=== PATIENT | male | born 1955 | race Caucasian/White ===

== ENCOUNTER 2019-03-12 21:31 | Emergency (ER) | payer OTHER ==
[~2019-03-12] VITALS: Ht 180.3 cm; Wt 96.2 kg
[2019-03-12] MEDS ORDERED: PACERONE 200 M200 M1 PO (21:54)
[2019-03-12] MEDS ORDERED: ELIQUIS5 MG PO (21:54)
[2019-03-12] MEDS ORDERED: ASPIR 8181 MG PO (21:54)
[2019-03-12] MEDS ORDERED: LASIX 40 MG TAB40 M2 PO (21:55)
[2019-03-12] MEDS ORDERED: CARVEDILOL12.5 MG PO (21:55)
[2019-03-12] MEDS ORDERED: FLORASTOR250 MG PO (21:55)
[2019-03-12] MEDS ORDERED: ATORVASTATIN CA40 MG PO (21:55)
[2019-03-12] MEDS ORDERED: SPIRONOLACTONE25 M1 PO (21:56)
[2019-03-12] MEDS ORDERED: GENTAMICIN80 MG/50 M IV (21:57)
[2019-03-12] MEDS ORDERED: UNICOMPLEX M TA1 TA1 PO (21:57)
[2019-03-13 00:43] VITALS: BP 107/66
[2019-03-14] MEDS ORDERED: SPIRONOLACTONE25 M1 PO (00:50)
[2019-03-14] MEDS ORDERED: TYGACIL50 MG IV (00:53)
[2019-03-14] MEDS ORDERED: CENTRUM SILVER1 EAC2 PO (01:10)
[2019-03-14] MEDS ORDERED: PROSTAT PO (01:10)
== END 2019-03-13 01:44 | disposition home or self-care (01) ==
LOC: ER 21:31
DX: Z04.3 Encounter for examination and observation following other accident (principal); I48.91 Unspecified atrial fibrillation; I11.0 Hypertensive heart disease with heart failure; I50.9 Heart failure, unspecified; J96.00 Acute respiratory failure, unspecified whether with hypoxia or hypercapnia; J44.9 Chronic obstructive pulmonary disease, unspecified; F17.200 Nicotine dependence, unspecified, uncomplicated; Z79.01 Long term (current) use of anticoagulants; W06.XXXA Fall from bed, initial encounter; Y93.89 Activity, other specified; Y92.89 Other specified places as the place of occurrence of the external cause; Y99.8 Other external cause status

== ENCOUNTER 2019-03-14 00:18 | Inpatient (IN) | payer OTHER ==
[2019-03-14] VITALS (33 sets, daily range): BP systolic 34–123; BP diastolic 14–74
[~2019-03-14] VITALS: Ht 180.3 cm; Wt 93.4 kg
--- NOTE | ~2019-03-14 | HC ---
Formerly [facility] [place] [address] [place] [address] CONSULTATION Name: UREIL HAWKINS Room #: 238-P ADM IN M.R.#: [id number] Admission: 03/14/19 ������������������ Attend Phys: Kulwant Trinidad MD Discharge: ������������������ Date of : 55 Report #: [id number] THIS REPORT FOR: //name// CC: Alexander Trinidad DATE OF SERVICE: 03/14/2019 REASON FOR CONSULTATION: Acute kidney injury and hyperkalemia. REASON FOR PRESENTATION: Abnormal labs. HISTORY OF PRESENT ILLNESS: This is a 63-year-old with past medical history of cardiomyopathy, hypertension, AFib. He is known to have lower extremity wound. He has been residing at his nursing facility after about few weeks' duration of hospitalization at [facility]. He had few toes amputation due to infection due to poor circulations as he stated. He has been maintained on Tygacil and gentamicin. Creatinine has been in the normal range. In fact, he was 1.0 back on 01/28/2019. This has started to go up to 1.9 as of 02/07/2019. No labs had been done ever since and the patient's BUN and creatinine was checked on 03/13/2019 and this revealed a BUN of 155 and a creatinine of 10.8. The patient denies any symptoms at this point. However, he did have a fall a few days ago. He has repeated falls ever since. No reported chest pain or shortness of breath. No nausea or vomiting. Phillips catheter was placed and the patient had about 200 mL of urine. When he presented yesterday, his potassium was on the high side at 6.5. Consult was placed for us to manage his acute kidney injury. PAST MEDICAL HISTORY: 1. A-Fib. 2. Cardiomyopathy. 3. Hypertension. 4. Hyperlipidemia. 5. COPD. 6. Status post left toes amputation. MEDICATIONS: 1. Amiodarone. 2. Aspirin. 3. Atorvastatin. 4. Carvedilol. 5. Furosemide. 6. Aldactone. 7. Tygacil. 8. Gentamicin. [facility] [address] [place] [address] CONSULTATION Name: URIEL HAWKINS Room #: 238-P [facility] IN [facility].#: [id number] Admission: 03/14/19 ������������������ Attend Phys: Kulwant Trinidad MD Discharge: ������������������ Date of : 55 Report #: [id number] SOCIAL HISTORY: Resides in a nursing facility. No drug or alcohol abuse. ALLERGIES: None. REVIEW OF SYSTEMS: GENERAL: No fever or chills. CARDIOVASCULAR: No chest pain or palpitation. PULMONARY: No cough or hemoptysis. GASTROINTESTINAL: No nausea or vomiting. GENITOURINARY: No frequency, no urgency. NEUROLOGICAL: As per the history of present illness. FAMILY HISTORY: Significant for hypertension. PHYSICAL EXAMINATION: GENERAL: He is alert, oriented, in no apparent distress. VITAL SIGNS: Blood pressure 73/44. He received 3 liters of normal saline. HEAD AND NECK: No jugular venous distention. CHEST: No crackles. CARDIOVASCULAR: No rub. ABDOMEN: Soft, nontender. LOWER EXTREMITIES: Cast is applied over the left lower extremity. No edema on the right lower extremity. LABORATORY VALUES: Reviewed. Sodium is 132, potassium is down to 5.5, BUN is 161, creatinine is 10.8, carbon dioxide 16. ASSESSMENT, IMPRESSION AND PLAN: 1. Acute kidney injury due to gentamicin. 2. Hyperkalemia. 2. Cardiomyopathy. 3. His acute kidney injury is related to the gentamicin. We will initiate the acute kidney injury workup. 4. He is hypotensive and will need aggressive fluid resuscitation. 5. Monitor urine output. 6. Potassium had improved. 7. Low threshold for dialysis. 8. Discontinue all medications that might contribute to his hyperkalemia including Aldactone, and other nephrotoxic agents. 9. Initiate pressors as needed. 10. We will continue to follow along. ��������������������������������������������� ���������������������������������������� By: ��������������������������������������������� 0643 0109 Alexander Paulino MD /nt
[~2019-03-14 00:18] MED LIST: ASPIR 8181 MG PO; ATORVASTATIN CA40 MG PO; CARVEDILOL12.5 MG PO; ELIQUIS5 MG PO; FLORASTOR250 MG PO; GENTAMICIN80 MG/50 M IV; LASIX 40 MG TAB40 M2 PO; PACERONE 200 M200 M1 PO; SPIRONOLACTONE25 M1 PO; UNICOMPLEX M TA1 TA1 PO
[2019-03-14] MEDS ORDERED: SPIRONOLACTONE25 M1 PO (00:50)
[2019-03-14] MEDS ORDERED: TYGACIL50 MG IV (00:53)
[2019-03-14 00:59] LABS: ABSOLUTE NEUTROPHILS 9.3 thou/uL (1.4-8.2); BASOPHILS 1.1 % (0.0-2.0); EOSINOPHILS 0.3 % (0.0-3.0); HEMATOCRIT 41.1 % (42.0-52.0); HEMOGLOBIN 13.8 gm/dL (14.0-18.0); LYMPHOCYTES 22.1 % (24.0-44.0); MCH 28.8 pg (26.0-34.0); MCHC 33.5 g/dL (28.0-37.0); MCV 85.9 fL (80.0-100.0); MONOCYTES 5.8 % (1.0-8.0); PLATELET COUNT 174 thou/uL (150-400); POLYS 70.7 % (36.0-66.0); RBC 4.79 mil/uL (4.50-6.00); RDW 14.8 % (10.5-14.5); WBC 13.1 thou/uL (4.0-11.0)
[2019-03-14] MEDS ORDERED: CENTRUM SILVER1 EAC2 PO (01:10)
[2019-03-14] MEDS ORDERED: PROSTAT PO (01:10)
[2019-03-14 01:12] LABS: APTT 38.2 Seconds (24.5-32.8); INR 1.2; PROTIME 12.6 Seconds (9.3-11.4)
[2019-03-14 01:12] LABS: URINE BILIRUBIN NEGATIVE (Negative); URINE BLOOD 2+ (Negative); URINE CLARITY CLEAR; URINE COLOR YELLOW; URINE GLUCOSE-RANDOM* NEGATIVE (Negative); URINE KETONES NEGATIVE (Negative); URINE LEUKOCYTES-REFLEX NEGATIVE (Negative); URINE NITRITE-REFLEX NEGATIVE (Negative); URINE PROTEIN (DIPSTICK) TRACE (Negative); URINE SPECIFIC GRAVITY 1.025 (1.005-1.035); URINE UROBILINOGEN 0.2 E.U./dl (0.2-1.0)
[2019-03-14 01:21] LABS: BACTERIA-REFLEX 1-9 Few /HPF (None Seen); CASTS None Seen /LPF (None Seen); CRYSTALS None Seen /LPF (None Seen); MUCUS 0-3 Light strn/LPF (None Seen); SQUAMOUS 0-3 Few /LPF (0-3); URINE RBC 0-2 Rare /HPF (0-2); URINE WBC-REFLEX 0-5 Rare /HPF (0-5)
[2019-03-14 01:22] LABS: ALBUMIN 2.5 g/dL (3.4-5.0); CALCIUM 7.7 mg/dL (8.5-10.1); CREATININE 11.6 mg/dL (0.7-1.3); DIRECT BILIRUBIN 0.3 mg/dL (<0.1-0.3); TOTAL BILIRUBIN 1.1 mg/dL (<0.1-1.0); TOTAL PROTEIN 6.1 g/dL (6.4-8.2)
[2019-03-14 01:23] LABS: POTASSIUM 6.5 mmol/L (3.5-5.1)
[2019-03-14 04:33] LABS: CALCIUM 7.1 mg/dL (8.5-10.1); CREATININE 10.8 mg/dL (0.7-1.3)
[2019-03-14 04:35] LABS: POTASSIUM 5.5 mmol/L (3.5-5.1)
[2019-03-14 04:41] LABS: MAGNESIUM 2.5 mg/dL (1.8-2.4); PHOSPHORUS 10.3 mg/dL (2.5-4.9)
--- NOTE | 2019-03-14 07:57 | EKG ---
[address] [place] [address] ELECTROCARDIOGRAM REPORT Name: URIEL HAWKINS Room #: 238-P ADM IN M.R.#: [id number] ������������������ Admission: 03/14/19 ������������������ Attend Phys: Rick Sarabia MD Discharge: ������������������ Date of : 55 Report #: [id number] ����������������������������������������������������������������� [id number] THIS REPORT FOR: //name// [facility] ED Test Date: 2019-03-14 Test Time: 00:30:22 Pat Name: URIEL HAWKINS Department: Room: 238 P Gender: M City Manager: LAURIE : 1955 Requested By: Donna Hubbard Order Number: [id number] MD: Robb Butcher Measurements Intervals [place] Rate: 65 P: 71 AR: 235 QRS: -81 QRSD: 155 T: 88 QT: 476 QTc: 495 Interpretive Statements Sinus rhythm Prolonged AR interval Left bundle branch block No previous ECG available for comparison Electronically Signed On 03-14-2019 7:57:19 CDT by Robb Butcher [email or web address] ��������������������������������������������� <ELECTRONICALLY SIGNED> ���������������������������������������� By: Robb Butcher MD, [facility] ��������������������������������������������� 03/14/19 0757 0030 Robb Butcher MD, FACC /EPI
--- NOTE | 2019-03-14 08:20 | NUR ---
ADMITTED PT TO ICU 240. PT LETHARGIC, AWAKENS EASILY. ANSWERS QUESTIONS APPROPRIATELY. BLOOD SUGAR LOW-D50 GIVEN EACH TIME. MONITOR SHOW SB WITH BBB. PLACED CATHETER-UO 350CC/HR. K AND CR SLIGHTLY IMPROVED. BMP AND STATUS CALLED TO DR MCKEON. ORDERS RECIEVED. [facility]
[2019-03-14 08:45] LABS: URINE BILIRUBIN NEGATIVE (Negative); URINE BLOOD 3+ (Negative); URINE CLARITY SL CLOUDY; URINE COLOR YELLOW; URINE GLUCOSE-RANDOM* NEGATIVE (Negative); URINE KETONES NEGATIVE (Negative); URINE LEUKOCYTES 1+ (Negative); URINE NITRITE NEGATIVE (Negative); URINE PROTEIN (DIPSTICK) TRACE (Negative); URINE UROBILINOGEN 0.2 E.U./dl (0.2-1.0)
--- NOTE | 2019-03-14 08:50 | NUR ---
0835 - PT TO IR FOR TEMP DIALYSIS CATH/CENTRAL LINE
[2019-03-14 08:53] LABS: URINE CREATININE-RANDOM* 65.8 mg/dL
[2019-03-14 08:55] LABS: AMORPHOUS URATES Moderate /LPF (None Seen); COARSE GRANULAR CASTS 0-3 Few /LPF (None Seen); SQUAMOUS None Seen /LPF (0-3)
[2019-03-14 08:56] LABS: BACTERIA 1-9 Few /HPF (None Seen); URINE RBC 3-10 Few /HPF (0-2)
[2019-03-14 11:04] LABS: CALCIUM 6.8 mg/dL (8.5-10.1); CREATININE 10.4 mg/dL (0.7-1.3); POTASSIUM 5.5 mmol/L (3.5-5.1)
[2019-03-14 11:06] LABS: PHOSPHORUS 10.3 mg/dL (2.5-4.9)
--- NOTE | 2019-03-14 16:19 | NUR ---
FAXED CLINICAL UPDATE TO [facility] LEFT G WITH EVELIO IN ADM. OF UPDATE. DCP TO CLEO.
--- NOTE | 2019-03-14 19:42 | NUR ---
WOUND CONSULT: PT. WAS SEEN TODAY BY DR. DIGGS AND MYSELF. PT. HAS A STABLE ULCER TO HIS RIGHT DORSAL FOOT AND A TOTAL CONTACT CAST TO HIS LLE. PT. WOULDN'T COMMUNICATE WITH US THIS VISIT AND WE WERE UNABLE TO ESTABLISH AT THIS TIME WHAT IS UNDER THE TOTAL CONTACT CAST. IT WAS LEFT IN PLACE AND THIS WILL BE EVAUATED ON ANOTHER DATE. RECOMMENDATIONS: WOUND CARE TO RIGHT DORSAL FOOT: GENTLY CLEANSE WITH WOUND CLEANSER OR NORMAL SALINE, COVER WITH OPTIFOAM BORDER, COMPLETE CARES M/W/F AND PRN SOILAGE. PT. AND STAFF NURSE WERE INSTRUCTED ON PLAN OF CARE.
[2019-03-15] VITALS (22 sets, daily range): BP systolic 92–149; BP diastolic 52–114
[2019-03-15 05:05] LABS: MCH 29.2 pg (26.0-34.0); MCHC 34.3 g/dL (28.0-37.0); MCV 85.2 fL (80.0-100.0); RBC 3.41 mil/uL (4.50-6.00); RDW 14.5 % (10.5-14.5); WBC 6.2 thou/uL (4.0-11.0)
[2019-03-15 05:20] LABS: ALBUMIN 2.6 g/dL (3.4-5.0); CALCIUM 6.8 mg/dL (8.5-10.1); PHOSPHORUS 5.6 mg/dL (2.5-4.9)
[2019-03-15 05:37] LABS: POTASSIUM 4.2 mmol/L (3.5-5.1)
[2019-03-15 05:38] LABS: CREATININE 6.7 mg/dL (0.7-1.3)
--- NOTE | 2019-03-15 07:55 | 2DMMODE ---
[facility] [place] [address] 2 D/M-MODE ECHOCARDIOGRAM Name: URIEL HAWKINS Room #: 238-P ADM IN ..#: [id number] ������������� Admission: 03/14/19 ������������� Attend Phys: Kulwant Trinidad MD Discharge: ��� ������������� ��� Date of : 55 Date of Service: 03/15/19 0755 �� Report #: [id number] �������� ��������������������������������������������[id number] THIS REPORT FOR: //name// APPROVED REPORT Study performed: 03/15/2019 07:09:50 EXAM: Comprehensive 2D, Doppler, and color-flow Echocardiogram Patient Location: ICU Room #: 238 Status: routine BSA: 2.10 HR: 61 bpm BP: 112/65 mmHg Rhythm: Regular Other Information Study Quality: Good Indications Short of breath. Hx: Cardiomyopathy, heart failure, Afib, HTN, COPD. 2D Dimensions RVDd: 35.00 mm IVSd: 13.00 (7-11mm) LVOT Diam: 21.42 (18-24mm) LVDd: 63.00 mm PWd: 13.00 (7-11mm) Ascending Ao: 34.88 (22-36mm) LVDs: 52.00 (25-40mm) Aortic Root: 35.13 mm Volumes Left Atrial Volume (Systole) Single Plane 4CH: 46.51 mL Single Plane 2CH: 52.21 mL LA ESV Index: 25.00 mL/m2 Aortic Valve AoV Peak Lito.: 1.41 m/s AO Peak Gr.: 8.00 mmHg LVOT Max P.59 mmHg LVOT Max V: 1.18 m/s LEANNA Vmax: 3.01 cm2 Mitral Valve E/A Ratio: 0.8 MV Decel. Time: 178.69 ms [facility] [place] [address] [place] [address] 2 D/M-MODE ECHOCARDIOGRAM Name: URIEL HAWKINS Room #: 238-P [facility] IN ..#: [id number] ������������� Admission: 03/14/19 ������������� Attend Phys: Kulwant Trinidad MD Discharge: ��� ������������� ��� Date of : 55 Date of Service: 03/15/19 0755 �� Report #: [id number] �������� ��������������������������������������������[id number] MV E Max Lito.: 0.62 m/s MV A Lito.: 0.76 m/s MV PHT: 51.82 ms IVRT: 147.64 ms Pulmonary Valve PV Peak Lito.: 0.98 m/s PV Peak Gr.: 3.85 mmHg Pulmonary Vein P Vein S: 0.88 m/s P Vein A: 0.26 m/s P Vein D: 0.75 m/s P Vein A Dur.: 166.1 msec P Vein S/D Ratio: 1.17 Tricuspid Valve RAP Estimate: 5.00 mmHg Left Ventricle Left ventricle is moderately dilated. Mild concentric left ventricular hypertrophy. Left ventricular systolic function is moderately decreased. LVEF is 40%. Mild diastolic dysfunction is present (impaired relaxation pattern). Right Ventricle The right ventricle is normal size. The right ventricular systolic function is normal. Atria The left atrium size is normal. The right atrium size is normal. Aortic Valve The aortic valve is normal in structure. No aortic regurgitation is present. There is no aortic valvular stenosis. Mitral Valve The mitral valve is normal in structure. Trace mitral regurgitation. Tricuspid Valve The tricuspid valve is normal in structure. Trace tricuspid regurgitation. Unable to assess PA pressure. Pulmonic Valve The pulmonary valve is normal in structure. Trace pulmonic regurgitation. [facility] [address] [place] [address] 2 D/M-MODE ECHOCARDIOGRAM Name: URIEL HAWKINS Room #: 238-P ADM IN M.R.#: [id number] ������������� Admission: 03/14/19 ������������� Attend Phys: Kulwant Trinidad MD Discharge: ��� ������������� ��� Date of : 55 Date of Service: 03/15/19 0755 �� Report #: [id number] �������� ��������������������������������������������[id number] Great Vessels The aortic root is normal in size. The ascending aorta is normal in size. IVC is normal in size and collapses >50% with inspiration. Pericardium There is no pericardial effusion. <Conclusion> Left ventricular systolic function is moderately decreased. LVEF is 40%. Mild diastolic dysfunction The aortic valve is normal in structure. No aortic regurgitation or stenosis The mitral valve is normal in structure. Trace mitral regurgitation. Pulmonary artery pressure could not be reliably ascertained There is no pericardial effusion. ��������������������������������������������� <ELECTRONICALLY SIGNED> ���������������������������������������� By: Robb Butcher MD, FACC ��������������������������������������������� 03/15/19 0755 0755 075 Robb Butcher MD, FACC /INF
--- NOTE | 2019-03-15 10:21 | NUR ---
INITIAL ASSESSMENT: Pt evaluated for d/c planning needs. Reviewed chart and spoke with nurse, pt and admissions liaison at [facility]. Pt lives in independent apartment at [facility]. Pt was hospitalized at [facility] in January and had toe amputation. Pt plans on returning to [facility] on d/c from hospital. Will remain available to assist as needed.
[2019-03-15 13:07] LABS: HEP B SURFACE Ab(ANTI-HBS Non Reactive (()); HEPATITIS B SURFACE AG Negative (Negative)
--- NOTE | 2019-03-15 13:32 | NUR ---
WOUND FOLLOW UP: PT. WAS SEEN TODAY BY DR. DIGGS AND MYSELF. NO SIGNIFICANT CLINICAL CHANGE FROM YESTERDAYS ASSESEMENT BUT, EVERYTHING REMAINS STABLE. RECOMMENDATIONS: CONTINUE WITH CURRENT PLAN OF CARE. PT. AND STAFF NURSE WERE INSTRUCTED ON PLAN OF CARE.
--- NOTE | 2019-03-15 17:34 | NUR ---
TRANSFERRED FROM ICU TO ROOM 209. ON ARRIVAL TO ROOM, PATIENT NAUSEATED WITH THIN CLEAR LIQUID EMESIS, SMALL AMOUNT. SMALL AMOUNT OF BLOOD OOZING FROM RIJTLC. DR. MURILLO CALLED AND ORDER RECIEVED FOR COMPAZINE IV. DRESSING TO TLC CHANGED WITH NEW BIOPATCH. NO COMPLAINTS OF PAIN, VSS.
--- NOTE | 2019-03-15 18:49 | HC ---
[facility] [place] [address] [place] [address] CONSULTATION Name: URIEL HAWKINS Room #: 209-P ADM IN M.R.#: [id number] Admission: 03/14/19 ������������������ Attend Phys: Kulwant Trinidad MD Discharge: ������������������ Date of : 55 Report #: [id number] THIS REPORT FOR: //name// CC: Alexander Trinidad REASON FOR CONSULTATION: I was asked to evaluate concerning left foot ischemia with distal infection. HISTORY OF PRESENT ILLNESS: He reports, a month ago, had several toes amputated from his left foot. This was performed by Dr. Angela at [facility]. He was discharged on tigecycline and gentamicin. He has continued on this combination for the last month. I have not seen any laboratory studies other than those from 03/13/2019 which showed a creatinine of 10. He was in the Emergency Room on 03/12/2019 after a fall, but no laboratory studies were drawn at that point in time. He does have peripheral vascular disease, history of congestive heart failure, atrial fibrillation, COPD. Due to the change in his condition and kidney function, he was hospitalized for acute dialysis. Nephrology has seen the patient and has scheduled him for this procedure. The patient has complained of some lightheadedness and nausea. Denies any fever, chills or sweats. He has had some loose stool. Minimal urine output. Very weak with several falls in the last several days. The patient was lethargic, but able to answer questions. He denied any chest pain, palpitations, cough, sputum production, hemoptysis, nausea, vomiting. No other skin lesions noted. He has not followed up with Dr. Angela, per his report since discharge. He continues with a cast on the left leg. No increased pain. He has been walking on his left leg. ALLERGIES: None known. MEDICATIONS: As noted on his MAR, including the gentamicin and tigecycline. Also, on amiodarone, Eliquis, aspirin, Lipitor, Coreg, Lasix, Aldactone, ProStat and multivitamin. PAST MEDICAL HISTORY: Cardiomyopathy, congestive heart failure, atrial fibrillation, hypertension, COPD, peripheral vascular disease, and ischemic wounds to his distal left foot status post toe amputation one month ago. FAMILY HISTORY: Noncontributory. SOCIAL HISTORY: Smoker of cigarettes. No significant alcohol intake or drug use. REVIEW OF SYSTEMS: Ten-point review was negative other than what has been described above. [facility] [address] [place] [address] CONSULTATION Name: URIEL HAWKINS Room #: 209-P [facility] IN [facility]#: [id number] Admission: 03/14/19 ������������������ Attend Phys: Kulwant Trinidad MD Discharge: ������������������ Date of : 55 Report #: [id number] PHYSICAL EXAMINATION: VITAL SIGNS: He is afebrile and hemodynamically stable. GENERAL: He was lethargic, although would awaken and follow commands and converse. SKIN: With shallow ulceration to the dorsum of his right foot as well as a callus to the right posterior plantar foot. Pulses were diminished in his feet. No other skin lesions noted. No rashes. No palpable adenopathy. HEENT: Eyes, without scleral icterus. Mouth without mucositis or lesions. NECK: Supple. He had a right IJ catheter in place. ARM: He had a peripheral IV in the left arm. LUNGS: Clear. HEART: Regular without appreciable murmur, gallop or rub. ABDOMEN: Mildly distended, nontender, no hepatosplenomegaly or mass appreciated. BACK: Midline nontender to percussion. No CVA tenderness. GENITOURINARY: External genitalia unremarkable with indwelling Phillips catheter. No lesions or masses. RECTAL: Not performed. EXTREMITIES: Able to move all extremities. NEUROLOGIC: Cranial nerve was intact. Sensation in his right foot was normal. MOOD: Sed[place]. LABORATORY STUDIES: Sodium 128, potassium 6.5, bicarbonate 19, creatinine 11.6, lactate 1.3. Liver function test normal. INR 1.2. Hemoglobin 13.8; WBC 13.1; platelet count 174,000. Differential unremarkable. Urinalysis, 2+ blood, otherwise unremarkable. ASSESSMENT: 1. Acute renal failure, likely drug induced. 2. Left distal foot osteomyelitis, status post toe amputations. Cause of infection, etiology of his bacteriology and current state of his left foot is yet to be determined for he has a closed cast in place. 2. Atrial fibrillation, controlled. 3. Hyponatremia. 4. Hyperkalemia. 5. Toxic metabolic encephalopathy. RECOMMENDATION: We will continue off antibiotics now and reevaluate his left foot. We will have to remove the cast. Have podiatry followup. Acute dialysis to be started. We will see how he does after dialysis regarding his unsteadiness. Reevaluate his hearing and vestibular system more in depth. ��������������������������������������������� <ELECTRONICALLY SIGNED> ���������������������������������������� By: Feliz Kim MD ��������������������������������������������� 03/15/19 1849 [id number] [id number] Feliz Kim MD /nt
[2019-03-16 00:01] VITALS: BP 111/63
[2019-03-16 04:16] VITALS: BP 115/73
--- NOTE | 2019-03-16 05:25 | NUR ---
ASSUMED PT CARE AT 1900 WITH NO SIGN OF DISTRESS NOTED, PT IS ALERT AND ORIENTED, PT IS DROWSY AND STATED THAT HE NEEDED TO SLEEP. DIAYISIS CATH IS IN PLACE WITH IJ TRIPLE LUMEN, PT IS STABLE. BRITTON IN PLACE. PT IS INCONTINENT OF BOWEL. NO SIGN OF DISTRESS NOTED THROUGH OUT THE NIGHT. DENIES ANY FURTHER NEEDS AT THIS TIME.
[2019-03-16 05:47] LABS: HEMATOCRIT 31.1 % (42.0-52.0); HEMOGLOBIN 10.5 gm/dL (14.0-18.0); MCH 29.3 pg (26.0-34.0); MCHC 33.7 g/dL (28.0-37.0); MCV 87.1 fL (80.0-100.0); RBC 3.57 mil/uL (4.50-6.00); RDW 14.8 % (10.5-14.5)
[2019-03-16 06:13] LABS: ALBUMIN 2.4 g/dL (3.4-5.0); CALCIUM 7.1 mg/dL (8.5-10.1); CREATININE 4.8 mg/dL (0.7-1.3); PHOSPHORUS 4.8 mg/dL (2.5-4.9); POTASSIUM 4.6 mmol/L (3.5-5.1)
[2019-03-16 08:00] VITALS: BP 129/80
[2019-03-16 11:36] LABS: HEMATOCRIT 30.6 % (42.0-52.0); HEMOGLOBIN 10.3 gm/dL (14.0-18.0)
[2019-03-16 11:42] VITALS: BP 142/78
--- NOTE | 2019-03-16 12:07 | NUR ---
MET WITH PATIENT AND REVIEWED ROLE OF CASEMGT. PLAN RETURN TO [facility] [place] PATIENT IS AGREEABLE. LEFT MESSAGE FOR BROTHER EBONIE. PATIENT, SISTER AND BROTHER APPARENTLY ALL HAVE SAME CELL NUMBER.
--- NOTE | 2019-03-16 13:53 | NUR ---
WOUND FOLLOW UP: PT. WAS SEEN TODAY BY DR. DIGGS AND MYSELF. PT. WOUND CARE ORDERS WERE UPDATED TO AID IN WOUND HEALING. RECOMMENDATIONS: CONTINUE WITH CURRENT PLAN OF CARE. PT. AND STAFF NURSE WERE INSTRUCTED ON PLAN OF CARE.
--- NOTE | 2019-03-16 15:59 | NUR ---
spoke with brother Bob who reports a physician told him that patient would be going to [facility] [place]hab [place] and Bob took all his belongings from facility. Discussed unsure of which rehab in [facility] and [place] so may not cover "rehab" in [facility]. Patient may need LTAC at [place].
[2019-03-16 16:38] VITALS: BP 128/64
--- NOTE | 2019-03-16 18:38 | NUR ---
ASSUMED CARE OF PT AT 0700. PT ALERT, ORIENTED TO SELF AND SITUATION AND SOMETIMES PLACE. PT NOT EATTING MEALS BUT EATS ICECREAM. EDUCATION PROVIDED REGARDING NUTRITION AND WOUND HEALING. PT WILL NEED REINFORCEMENT. PT HAD LARGE WATER CONSISTANCY STOOL THAT SMELLED OF [place]LENA AND HAD STAINED [place] EDGES RED. CDIFF AND OCCULT STOOL SENT AND BOTH WERE NEGATIVE. DR. LIZARRAGA ROUNDED ON PT. ISOLATION FOR VRE AND MDR BACTERIA MAINTAINED. ER CALLED TO REMOVED CAST AND DR. PIERSON (PODIATRY SURGEON) ROUNDED ON PT. WALKING BOOT ORDERED WITH WT BEARING TOLERATED. PT NOT ABLE TO TOLERATE SITTING ON EDGE OF BED TODAY (SEE PT/OT NOTES). VITALS SIGNS WITHIN NORMAL LIMITS AND PT WAS SINUS RHYTHM WITH BBB ON TELE. WOUNDS (RIGHT HEEL AND TOP OF FOOT) PHOTOGRAPHED. AMPUTATION INCISION WELL APPROXIMATED WITH NO DRAINAGE.
[2019-03-16 20:00] VITALS: BP 130/98
[2019-03-16 22:52] LABS: HEMATOCRIT 29.4 % (42.0-52.0); HEMOGLOBIN 10.1 gm/dL (14.0-18.0)
--- NOTE | 2019-03-17 03:40 | NUR ---
ASSESSMENT DOCUMENTED.PT RESTED WELL THROUGH THE NOC.A/O.VSS.LEFT FT DRESSING REDRESSED,CDI.IVF.PT DENIES PAIN.SR ON MONITOR.TURNED AND REPOSITIONED Q2H.TOBI DESAI.PT DENIES NEEDS AT THIS TIME.WILL CONT TO MONITOR PER POC.
[2019-03-17 04:35] VITALS: BP 125/77
[2019-03-17 06:16] LABS: HEMATOCRIT 30.1 % (42.0-52.0); MCH 29.2 pg (26.0-34.0); MCHC 33.2 g/dL (28.0-37.0); MCV 87.9 fL (80.0-100.0); RBC 3.42 mil/uL (4.50-6.00); RDW 15.1 % (10.5-14.5); WBC 7.5 thou/uL (4.0-11.0)
--- NOTE | 2019-03-17 06:27 | NUR ---
ISOLATION MAINTAINED,IV ABTS GIVEN PER ORDERS.PT MORE AWAKE,A/OX3.VSS.REDRESSED LEFT FOOT,SUTURES INTACT.PT DENIES PAIN OR ANY DISTRESS.ADMITTED TO FEELING FATIQUED AND WEAK.
[2019-03-17 06:43] LABS: ALBUMIN 2.3 g/dL (3.4-5.0); CALCIUM 6.9 mg/dL (8.5-10.1); CREATININE 5.4 mg/dL (0.7-1.3); PHOSPHORUS 4.3 mg/dL (2.5-4.9); POTASSIUM 4.5 mmol/L (3.5-5.1)
[2019-03-17 07:14] VITALS: BP 125/77
--- NOTE | 2019-03-17 10:24 | NUR ---
Recommendation for "[facility]" was for [facility]. Discussed with the care team and renal. Podiatry note reviewed and new Cam boot being ordered. Referral called to [facility] to eval. [facility] retail planner to fax clinical for their reveiw. All parties updated.
[2019-03-17 11:15] VITALS: BP 108/65
--- NOTE | 2019-03-17 11:42 | NUR ---
FAXED REFERRAL TO [facility] SPOKE WITH JOHN IN ADM SHE WILL REVIEW. DCP TO FOLLOW.
[2019-03-17 16:00] VITALS: BP 140/87
--- NOTE | 2019-03-17 17:25 | NUR ---
ASSUMED CARE OF PT AT SHIFT CHANGE. ASSESSMENTS CHARTED. MEDS GIVEN PER JAN. PT ALERT AND ORIENTED, VSS, NO C/O PAIN, DENIES CHEST PAIN. O2 SATS WNL ON ROOM AIR, NO S/SX OF CARD OR RESP DISTRESS NOTED. APPETITE ADEQUATE THIS SHIFT. PT RECEIVED DIALYSIS, TOLERATED WELL. PT FOOT BRACE DID NOT FIT APPROPRIATELY, NEW BRACE ORDERED, RECEIVED AT APPROX 1700. PHYSICAL THERAPY WAS NOT ABLE TO WORK WITH PT TODAY DUE TO ORIGINAL BRACE NOT FITTING APPROPRIATELY. PT DENIES CONCERNS AT THIS TIME. CONTINUING TO MONITOR.
[2019-03-17 19:45] VITALS: BP 132/76
[2019-03-18 04:41] VITALS: BP 119/80
[2019-03-18 05:31] LABS: ALBUMIN 2.3 g/dL (3.4-5.0); CALCIUM 6.9 mg/dL (8.5-10.1); PHOSPHORUS 3.3 mg/dL (2.5-4.9); POTASSIUM 5.1 mmol/L (3.5-5.1)
--- NOTE | 2019-03-18 05:41 | NUR ---
pt alert and oriented. flat affect denies pain. no c/o nausea, or vomiting, no BM recorded. pt maintained in isolation. Phillips in place.Pt otherwise had a restful night. vitals stable. Will continue to follow plan of care.
[2019-03-18 05:46] LABS: CREATININE 3.7 mg/dL (0.7-1.3)
[2019-03-18 07:54] VITALS: BP 100/60
--- NOTE | 2019-03-18 08:47 | NUR ---
WOUND FOLLOW UP: PT. WAS SEEN TODAY BY DR. DIGGS AND MYSELF. PT. WOUNDS TO HIS BILATERAL FEET ARE ALL INTACK, DRY AND STABLE. RECOMMENDATIONS: CONTINUE WITH CURRENT PLAN OF CARE. PT. AND STAFF NURSE WERE INSTRUCTED ON PLAN OF CARE.
[2019-03-18 08:53] LABS: HEMATOCRIT 31.1 % (42.0-52.0); HEMOGLOBIN 10.4 gm/dL (14.0-18.0); MCH 29.5 pg (26.0-34.0); MCHC 33.4 g/dL (28.0-37.0); MCV 88.3 fL (80.0-100.0); RBC 3.52 mil/uL (4.50-6.00); RDW 15.3 % (10.5-14.5)
--- NOTE | 2019-03-18 10:15 | NUR ---
Referral to LTAC on hold at this time. Renal status improving and dialysis on hold. Renal to follow over the weekend. Pt may be able to return to [facility] care early next week instead of going to LTAC. The attending has updated the pt this am and travel writer left a message for his brother Bob. Will follow.
[2019-03-18 11:54] VITALS: BP 108/73
--- NOTE | 2019-03-18 15:40 | NUR ---
ASSUMED CARE OF PT AT SHIFT CHANGE. ASSESSMENTS CHARTED. MEDS GIVEN PER JAN. PT ALERT AND ORIENTED, VSS, NO C/O PAIN. PT EXPRESSED SADNESS ABOUT BEING IN HOSPITAL, REASSURANCE GIVEN PT STATUS IS IMPROVING. DENIES CHEST PAIN, SOB. PT WORKED [facility] PHYS THERAPY TODAY, TOLERATED WELL BOOT FITS PT FOOT PROPERLY. TOBI [facility] THIS AM, PT VOIDING ADEQUATELY. APPETITE ADEQUATE. O2 SATS WNL ON ROOM AIR, NO S/SX OF CARD OR RESP DISTRESS NOTED. PT BROTHER UPDATED TODAY ON POC-- REFER TO NOTES. PT PROGRESSING TOWARDS PLAN OF CARE. CONTINUING TO MONITOR.
[2019-03-18 16:27] VITALS: BP 123/76
[2019-03-18 20:19] VITALS: BP 99/58
--- NOTE | 2019-03-19 02:29 | NUR ---
ASSESSMENTS CHARTED. PATIENT RESTING IN BED DURING SHIFT. WITHDRAWN. PRAFO BOOTS PUT ON FOR THE NIGHT. REPOSITIONED PATIENT WILL ALLOW. PLAN OF CARE IS TO CONTINUE PHYSICAL THERAPY TO IMPROVING WALKING AND RETURN TO [facility] IF KIDNEY FUNCTION CONTINUES TO IMPROVE.
[2019-03-19 05:02] VITALS: BP 125/71
[2019-03-19 07:25] VITALS: BP 121/69
[2019-03-19 10:39] LABS: CREATININE 4.2 mg/dL (0.7-1.3); POTASSIUM 4.5 mmol/L (3.5-5.1)
[2019-03-19 12:48] LABS: HEMATOCRIT 32.1 % (42.0-52.0); HEMOGLOBIN 10.7 gm/dL (14.0-18.0); MCH 29.2 pg (26.0-34.0); MCHC 33.3 g/dL (28.0-37.0); MCV 87.7 fL (80.0-100.0); RBC 3.66 mil/uL (4.50-6.00); RDW 14.8 % (10.5-14.5); WBC 7.2 thou/uL (4.0-11.0)
[2019-03-19 16:24] VITALS: BP 110/65
--- NOTE | 2019-03-19 18:16 | NUR ---
ASSUMED CARE OF PT AT SHIFT CHANGE. ASSESSMENTS CHARTED. MEDS GIVEN PER JAN. PT ALERT AND ORIENTED, VSS, PT SEEMS WITHDRAWN, NOT MOTIVATED. C/O HEADACHE, MANAGED WITH PO TYLENOL. REFUSED TO GET UP, Q2 TURNS ENFORCED, PT PREFERS TO TURN SELF. EDUCATION GIVEN ON WHY IT IS IMPORTANT TO GET UP AND MOVE AROUND TO [facility]. PT HAD FAIR APPETITE, AND FINISHED ENSURE SUPPLEMENTS WITH MEALS. NO S/SX OF CARD OR RESP DISTRESS NOTED. WILL CONTINUE TO MONITOR AND FOLLOW POC.
[2019-03-19 20:19] VITALS: BP 151/90
--- NOTE | 2019-03-20 01:55 | NUR ---
ASSESSMENTS CHARTED. PATIENT SELF TURNING. INCONTINENT OF BLADDER. PATIENT SLEEPING THROUGH SHIFT. PLAN OF CARE IS TO CONTINUE PHYSICAL THERAPY, WITH RENAL IMPROVEMENT HE MAY RETURN TO CARE UPON DISCHARGE.
[2019-03-20 03:31] VITALS: BP 114/72
[2019-03-20 03:50] LABS: ALBUMIN 2.5 g/dL (3.4-5.0); CALCIUM 8.3 mg/dL (8.5-10.1); CREATININE 4.1 mg/dL (0.7-1.3); PHOSPHORUS 4.1 mg/dL (2.5-4.9)
[2019-03-20 07:59] VITALS: BP 111/75
[2019-03-20 11:46] VITALS: BP 112/63
--- NOTE | 2019-03-20 19:05 | NUR ---
ASSUMED CARE OF PATIENT AT 0700. PATIENT IS A&O X 3. HE IS VERY LETHARGIC AND HAS A FLAT AFFECT. PATIENT DENIES ANY PAIN. PATIENT USES A URINAL AT THE BEDSIDE. PATIENT HAS A SURGICAL WOUND ON THE LEFT FOOT AND WOUND ON THE RIGHT DORSAL FOOT. BOTH HAD SKIN PREP APPLIED. PATIENT REFUSED TO WEAR THE PROFO BOOTS. PATIENT TURNED HIMSELF FROM SIDE TO SIDE AND SLEPT THE MAJORITY OF THE DAY. PATIENT TO CONTINUE WITH POC.
[2019-03-20 20:34] VITALS: BP 112/73
[2019-03-21 03:25] LABS: HEMATOCRIT 33.1 % (42.0-52.0); HEMOGLOBIN 11.1 gm/dL (14.0-18.0); MCH 29.3 pg (26.0-34.0); MCHC 33.5 g/dL (28.0-37.0); MCV 87.5 fL (80.0-100.0); RBC 3.78 mil/uL (4.50-6.00); RDW 14.8 % (10.5-14.5); WBC 8.8 thou/uL (4.0-11.0)
[2019-03-21 03:41] LABS: ALBUMIN 2.6 g/dL (3.4-5.0); CALCIUM 8.4 mg/dL (8.5-10.1); CREATININE 3.7 mg/dL (0.7-1.3); MAGNESIUM 1.8 mg/dL (1.8-2.4); PHOSPHORUS 3.8 mg/dL (2.5-4.9); POTASSIUM 5.5 mmol/L (3.5-5.1)
[2019-03-21 04:55] VITALS: BP 112/75
--- NOTE | 2019-03-21 05:21 | NUR ---
ASSESSMENTS CHARTED. PATIENT REMAINS FLAT AND LETHARGIC. THE ONLY INTEREST HE SHOWED WAS TOWARD SNACKS. SELF TURNING. PLAN OF CARE IS TO RETURN TO CARE IF RENAL FUNCTION CONTINUES TO IMPROVE, THEN TO HIS BROTHERS HOUSE.
[2019-03-21 07:31] VITALS: BP 137/80
--- NOTE | 2019-03-21 09:33 | HC ---
[facility] [place] [address] [place] [address] CONSULTATION Name: URIEL HAWKINS Room #: 209-P ADM IN M.R.#: [id number] Admission: 03/14/19 ������������������ Attend Phys: Kulwant Trinidad MD Discharge: ������������������ Date of : 55 Report #: [id number] THIS REPORT FOR: //name// CC: Alexander Trinidad INTRODUCTION: This is a 63-year-old white male who I am being consulted on for a left foot transmetatarsal amputation followup. HISTORY OF PRESENT ILLNESS: This is a 63-year-old white male who had a transmetatarsal amputation approximately a month ago after frostbite. The patient was admitted to [facility] for acute renal failure. I am asked to see him because he had his total contact cast on, which was supposed to be removed yesterday in my wound care office. PAST MEDICAL HISTORY: As noted in the chart. He has a history of heart disease, cardiomyopathy, end-stage renal disease, AFib, hypertension, COPD. MEDICATIONS: List in chart has been reviewed, amiodarone (Pacerone), Eliquis, atorvastatin, furosemide, Florastor, spironolactone, Tygacil. ALLERGIES: No known drug allergies. SOCIAL HISTORY: The patient has a history of tobacco. No current alcohol use, recreational use. REVIEW OF SYSTEMS: In the chart. PHYSICAL EXAMINATION: The patient is seen at bedside, already has a complete workup for the upper extremity. Lower extremity shows his cast is off. His transplant site is basically healed. He has a few excoriations on his right foot, looks very good, but he is doing great right now and his blood flow is excellent. Dorsalis pedis palpable bilaterally and posterior tibial palpable bilaterally. ASSESSMENT: Status post over a month transmetatarsal amputation, left foot, with percutaneous Achilles lengthening, doing nicely. PLAN: To get him in a CAM walker, to ambulate in the CAM walker and when he follows up, we will get him in the correct shoe with accommodations for his foot type and possibly order some here at [facility], maybe we can get it taken care of while he is in the hospital. [facility] [address] [place] [address] CONSULTATION Name: URIEL HAWKINS Room #: 209-P ADM IN .R.#: [id number] Admission: 03/14/19 ������������������ Attend Phys: Kulwant Trinidad MD Discharge: ������������������ Date of : 55 Report #: [id number] The patient can walk with the CAM walker and I agree with the wound care plan for local wound treatment. ��������������������������������������������� <ELECTRONICALLY SIGNED> ���������������������������������������� By: Boaz Angela DPM ��������������������������������������������� 03/21/19 0933 [id number] Boaz Angela, DPM /nt
--- NOTE | 2019-03-21 10:04 | NUR ---
Follow up: kidney function has been noted to be improving. Still not much of appetite but has been drinking some of the Ensure supplements. Change to low risk with appropriate nutrition interventions in place
--- NOTE | 2019-03-21 15:22 | NUR ---
ASSUMED CARE OF PT AT 0700. PT A&OX4, VITALS WITHIN NORMAL LIMITS AND PT WAS SINUS RHYTHM WITH BBB ON TELEMETRY. DID A "COMMIT TO SIT" AND ASKED PT ABOUT HIS MOOD. HE STATED HE HAD MOOD SWINGS. PT HAS HAD FLAT EFFECT SINCE ADMISSION. PT REFUSED OCCUPATION THERAPY AND HAD TOLD THERAPIST HE WANTED TO BE SICK (SEE THERAPY NOTE) DR MURILLO NOTIFIED AND PYSCH CONSULT PUT IN.
--- NOTE | 2019-03-21 15:25 | NUR ---
WOUND FOLLOW UP: PT. WAS SEEN TODAY BY DR. DIGGS AND MYSELF. PT. WOUNDS ARE STABLE AT THIS TIME AND SO IS HIS HIS SURGICAL INCSION. RECOMMENDATIONS: CONTINUE WITH CURRENT PLAN OF CARE. PT. AND STAFF NURSE WERE INSTRUCTED ON PLAN OF CARE.
[2019-03-21 15:51] VITALS: BP 120/55
--- NOTE | 2019-03-21 16:24 | NUR ---
spoke with brother Bob and updated likely return to [facility] once stable as appears renal stabalizing.
[2019-03-21 19:59] LABS: FOLIC ACID 9.1 ng/mL (8.6-58.9)
[2019-03-21 20:35] VITALS: BP 128/83
--- NOTE | 2019-03-22 04:12 | NUR ---
ASSESSMENT DOCUMENTED.PT RESTING IN NO ACUTE DISTRESS.A/OX4,VSS.AFEBRILE.PT FOLLOWS COMMANDS APPROPRIATELY.DENIES PAIN OR ANY DISTRESS AT THIS TIME.WILL CONT TO MONITOR PER POC.
[2019-03-22 04:30] VITALS: BP 137/88
[2019-03-22 05:52] LABS: ALBUMIN 2.9 g/dL (3.4-5.0); CALCIUM 8.6 mg/dL (8.5-10.1); CREATININE 3.5 mg/dL (0.7-1.3); PHOSPHORUS 3.5 mg/dL (2.5-4.9); POTASSIUM 5.7 mmol/L (3.5-5.1)
[2019-03-22 07:07] VITALS: BP 117/85
[2019-03-22 11:23] VITALS: BP 135/86
--- NOTE | 2019-03-22 15:44 | NUR ---
discussed with patient dc planning. Patient reports at ri he is going home. Discussed plan return to [facility] for cont therapy. "I dont know what im going to do." Patient able to articulate patient was prev at [facility] for his foot and dc to [facility]. He reports 4 sisters who he reports has not visited him while he is in hospital. Patient ate no lunch and reports he is not hungry. Prev plan possible LTAC but appears no need for cont dialysis and plan return to [facility] at ri. Facility updated.
[2019-03-22 15:48] VITALS: BP 124/82
--- NOTE | 2019-03-22 16:55 | NUR ---
FAXED CLINICAL UPDATE TO [facility] LEFT MSG WITH EVELIO IN ADM THAT UPDATE HAS BEEN FAXED AND ANTICIPATE DC TOMORROW. DCP TO FOLLOW.
[2019-03-22 19:10] LABS: SYPHILIS AB Negative (Negative)
[2019-03-22 19:29] VITALS: BP 114/74
--- NOTE | 2019-03-22 19:51 | HC ---
[facility] [place] [address] [place] [address] CONSULTATION Name: URIEL HAWKINS Room #: 209-P ADM IN M.R.#: [id number] Admission: 03/14/19 ������������������ Attend Phys: Kulwant Trinidad MD Discharge: ������������������ Date of : 55 Report #: [id number] THIS REPORT FOR: //name// CC: Alexander Trinidad DATE OF SERVICE: 03/14/2019 CHIEF COMPLAINT: Ulceration to the right foot and possibly left foot. HISTORY OF PRESENT ILLNESS: This is a 63-year-old male patient who was admitted to ICU. He is somewhat groggy or somnolent in bed. He is not able to provide much information. He has been in a custodial facility for the last month. He had a foot surgery at [place] by Dr. Angela and had what was believed to be a transmetatarsal amputation of the left foot. He had been on Tygacil and gentamicin for the last month as well. He has had increase in his BUN and creatinine and he has now been admitted for further evaluation. I have been asked to see him with regard to wound care. ALLERGIES: None. MEDICATIONS: Include amiodarone, Eliquis, aspirin, Lipitor, Coreg, Lasix, Florastor, Aldactone, gentamicin, Tygacil, ProStat and Centrum Silver. PAST MEDICAL HISTORY: Positive for cardiomyopathy, hypertension, atrial fibrillation, congestive heart failure, COPD, respiratory failure and chronic ulceration to the right foot and left distal foot. He is status post transmetatarsal amputation of the left foot in 01/2019. SOCIAL HISTORY: The patient is a current smoker. No tobacco use. FAMILY HISTORY: Noncontributory. REVIEW OF SYSTEMS: Very limited due to the patient's grogginess. He denies pain in his feet, shortness of breath or abdominal pain. Other systems are unobtainable. PHYSICAL EXAMINATION: VITAL SIGNS: The patient's vital signs at this time include temperature 36.4, pulse 62, respiratory rate of 17 and blood pressure 112/56. GENERAL: This is a chronically ill-appearing male patient who appears to be in minimal distress. HEENT: Head is normocephalic. Nose and throat are clear. NECK: Supple. LUNGS: Diminished. [address] [address] CONSULTATION Name: URIEL HAWKINS Room #: 209-P [facility] IN .R.#: [id number] Admission: 03/14/19 ������������������ Attend Phys: Kulwant Trinidad MD Discharge: ������������������ Date of : 55 Report #: [id number] HEART: Regular, without murmur. ABDOMEN: Soft. EXTREMITIES: Demonstrate diminished, yet palpable distal pulses. He has some very superficial ulceration on the dorsal aspect of the right foot, without evidence of infection. He has a total contact cast on the left side that will need to be removed; I do not have a removal equipment with me at this time. LABORATORY DATA: Includes sodium 134, potassium 5.5, chloride 101, CO2 of 18, BUN 147, creatinine 10.4 and calcium is 6.8. Albumin 2.0. White blood cell count 13.1, hemoglobin 13.8. CLINICAL IMPRESSION: 1. Chronic ulceration to the dorsal aspect of the right foot. 2. Recent toe amputation or possible transmetatarsal amputation of the left foot with total contact cast in place. 3. Acute renal failure. 4. Dysequilibrium, possibly on the basis of gentamicin toxicity. RECOMMENDATIONS: At this point in time, we will recommend skin prep to the dorsal aspect of the right foot. We will need to get a cast saw to get the total contact cast off and then evaluate the foot. We will ask Dr. Angela to see him for followup regarding his surgical procedure on the left foot as well. For acute renal failure, the patient will be seen by Nephrology and will be started on dialysis. I appreciate being asked to see him in consultation. ��������������������������������������������� <ELECTRONICALLY SIGNED> ���������������������������������������� By: Moe Mariscal MD ��������������������������������������������� 03/22/191950 23 11 Moe Mariscal MD /nt
--- NOTE | 2019-03-22 20:46 | NUR ---
ASSUMED CARE OF PT AT 0700. PT A&OX4, WITHDRAWN. PT WORKED WITH PHYSICAL AND OCCUPATION THERAPY TODAY AND WAS UP IN A CHAIR FOR PART OF SHIFT. PT NOT COMMUNICATING EXCEPT FOR YES/NO ANSWERS. PT SLEPT MOST OF DAY. VITALS WNL AND PT WAS SINUS RHYTHM WITH BBB ON TELEMETRY. ISOLATION MAINTAINED.
[2019-03-23 03:29] VITALS: BP 144/78
--- NOTE | 2019-03-23 04:32 | NUR ---
ASSESSMENT DOCUMENTED.PT RESTING IN NO ACUTE DISTRESS.A/OX4.VSS.PT DENIES PAIN OR ANY DISTRESS AT THIS TIME.WILL CONT TO MONITOR PER POC.
[2019-03-23 05:57] LABS: CREATININE 3.4 mg/dL (0.7-1.3); PHOSPHORUS 4.2 mg/dL (2.5-4.9); POTASSIUM 5.5 mmol/L (3.5-5.1)
[2019-03-23 08:11] VITALS: BP 122/83
[2019-03-23 10:59] VITALS: BP 120/74
--- NOTE | 2019-03-23 14:27 | NUR ---
Patient to dc later today to [facility]. Updated patient who is in agreement with transfer and notified brother Bob.
--- NOTE | 2019-03-23 15:49 | NUR ---
PT DISCHARGING TODAY BACK TO [facility] FAXED DC ORDERS/SUMMARY TO FACILITY SPOKE WITH HIREN IN ADM, HE WILL ARRANGE TRANSPORT VIA [facility] FOR 1730 TODAY. FAMILY NOTIFIED OF DC AND TIME OF TRANSPORT. UNIT NOTIFIED AND CHART COPY PER US. RN TO CALL REPORT TO [phone].
--- NOTE | 2019-03-23 16:28 | NUR ---
WOUND FOLLOW UP: PT. WAS SEEN TODAY BY DR. DIGGS AND MYSELF. ALL PT. SITES ARE STABLE AND PROGRESSING TOWARDS GOALS. PT. HAS NO COMPLAINTS AT THIS TIME. RECOMMENDATIONS: CONTINUE WITH CURRENT PLAN OF CARE. PT. AND STAFF NURSE WERE INSTRUCTED ON PLAN OF CARE.
--- NOTE | 2019-03-23 17:09 | NUR ---
ASSESSMENT CHARTED - MEDS PER JAN - NO CO'S OF PAIN OR NAUSEA - STELLA DIET AND FLUIDS. R JUGULAR PICC AND DIALYSIS CATH REMOVED THIS AFTERNOON - DRESSING APPEARS C/D/I. PT TO TRANSFER BACK TO CARE THIS AFTERNOON. ATTEMTED TO CALL REPORT - PHONE NOT ASWERED ON UNIT - CALL FLOW MACHINE OPERATOR BACK SHE WAS UNABLE TO GET ANYONE TO ANSWER THE PHONE - LEFT NAME / NUMBER FOR STAFF TO CALL FOR REPORT - FLOW MACHINE OPERATOR STATED THAT SHE WOULD GIVEN SOMEONE THE MESSAGE. TRANSPORT OT ARRIVE AT APPROX 1730.
--- NOTE | 2019-03-23 18:05 | NUR ---
PT DISCHARGED FROM UNIT - LEFT VIA WHEEL CHAIR [facility] HAS NOT CALLED FOR REPORT - CALLED THEM AGAIN AND GAVE REPORT TO SMITA. NO CO'S AT TIME OF D/C.
== END 2019-03-23 18:10 | DRG 682 ==
LOC: ER 00:18 → 2N 01:44 → EROBS 01:44 → ICU 01:44 → 2N 03-15 13:43
PROVIDERS: Emergency Medicine; Hospitalist; Internal Medicine; Internal Medicine Gastroenterology; Internal Medicine Nephrology; Nurse Practitioner; Nurse Practitioner Acute Care; Psychiatry & Neurology Psychiatry; ADMIT Hospitalist
PROC: B548ZZA Ultrasonography of Superior Vena Cava, Guidance (ICD-10-PCS; principal; 2019-03-14)
PROC: 02HV33Z Insertion of Infusion Device into Superior Vena Cava, Percutaneous Approach (ICD-10-PCS; principal; 2019-03-14)
PROC: 5A1D70Z Performance of Urinary Filtration, Intermittent, Less than 6 Hours Per Day (ICD-10-PCS; principal; 2019-03-14)
PROC: B5181ZA Fluoroscopy of Superior Vena Cava using Low Osmolar Contrast, Guidance (ICD-10-PCS; principal; 2019-03-14)
PROC: 5A1D70Z Performance of Urinary Filtration, Intermittent, Less than 6 Hours Per Day (ICD-10-PCS; 2019-03-15)
PROC: 5A1D70Z Performance of Urinary Filtration, Intermittent, Less than 6 Hours Per Day (ICD-10-PCS; 2019-03-17)
DX: N17.0 Acute kidney failure with tubular necrosis (principal); G92 Toxic encephalopathy; E43 Unspecified severe protein-calorie malnutrition; I42.9 Cardiomyopathy, unspecified; E87.1 Hypo-osmolality and hyponatremia; I13.2 Hypertensive heart and chronic kidney disease with heart failure and with stage 5 chronic kidney disease, or end stage renal disease; M86.8X7 Other osteomyelitis, ankle and foot; K92.2 Gastrointestinal hemorrhage, unspecified; I50.9 Heart failure, unspecified; N18.6 End stage renal disease; L97.519 Non-pressure chronic ulcer of other part of right foot with unspecified severity; E16.2 Hypoglycemia, unspecified; E86.0 Dehydration; I73.9 Peripheral vascular disease, unspecified; I48.0 Paroxysmal atrial fibrillation; J44.9 Chronic obstructive pulmonary disease, unspecified; E87.5 Hyperkalemia; I95.9 Hypotension, unspecified; F32.9 Major depressive disorder, single episode, unspecified; D64.9 Anemia, unspecified; E78.5 Hyperlipidemia, unspecified; T36.5X5A Adverse effect of aminoglycosides, initial encounter; F17.210 Nicotine dependence, cigarettes, uncomplicated; D69.6 Thrombocytopenia, unspecified; Z68.28 Body mass index [BMI] 28.0-28.9, adult; Y92.89 Other specified places as the place of occurrence of the external cause; Z89.422 Acquired absence of other left toe(s); Z79.01 Long term (current) use of anticoagulants; Z79.82 Long term (current) use of aspirin; Z79.899 Other long term (current) drug therapy; Z82.49 Family history of ischemic heart disease and other diseases of the circulatory system
CPT/HCPCS: 10078; 10081; 32100